=== PATIENT | male | born 1985 | race Caucasian/White ===

== ENCOUNTER 2023-10-17 12:52 | Emergency (ER) | payer OTHER ==
--- NOTE | 2023-10-17 13:06 | ED Physician Documentation ---
History of Present Illness - Stated complaint Stated Complaint: LT KNEE INJ - Chief complaint Chief Complaint: Trauma Ext - Additonal information Additional information: 38-year-old male with history of LCL tear to right knee about 3 years ago had cadaver surgery about 3 years ago has made full recovery. Yesterday he was playing soccer and said that he heard a loud pop of his left knee and is now having patellar tendon and lateral joint Space tenderness and says this feels exactly like his LCL tear about 3 years ago. 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 He is able to ambulate without weakness although he does have a limp on his left side. pain exacerbated with any manipulation of joint and with any weight bearing exercises. PD PAST MEDICAL HISTORY - Past Medical History Past Medical History: Yes Cardiovascular: Deep vein thrombosis - Past Surgical History Past Surgical History: Yes Ortho: ACL reconstruction - Present Medications Home Medications: Ambulatory Orders Medication Instructions Recorded Confirmed No Known Home Medications 10/17/23 10/17/23 - Allergies Allergies/Adverse Reactions: Allergies Allergy/AdvReac Type Severity Reaction Status Date / Time No Known Drug Allergies Allergy Verified 10/17/23 13:04 - Social History Does the pt smoke?: No Smoking Status: Never smoker Does the pt drink ETOH?: No Does the pt have substance abuse?: No - Immunizations Immunizations are current?: Yes PD ED PE NORMAL - Vitals Vital signs reviewed: Yes - General General: Alert and oriented X 3, No acute distress, Well developed/nourished - Derm Derm: Normal color, Warm and dry, No rash - Extremities Extremities: No edema PD ED PE EXPANDED - Extremities Extremities: Tenderness (to patella tendon and left lateral joint space.), Swelling, Left knee, Pedal Pulses Present, Motor intact. No: Deformity, Limited ROM, Bruising, Abrasion, Laceration, Joint effusion, Ligament laxity, Decreased/absent pulse Results - Vitals Vitals: Vital Signs - 24 hr 10/17/23 12:57 Temperature 36.9 C Heart Rate 70 Respiratory 14 Rate Blood Pressure 116/74 O2 Saturation 98 Oxygen O2 Source Room air - Rads (name of study) left knee Xray 3V Relevant Findings:: Final report received, EMP independent interpretation of test, Other (No acute bony abnormalities) PD Medical Decision Making - ED course ED course: 38-year-old male with pain differentials include but are not limited to knee dislocation, fracture, patellar tendinitis, ligament tear, patellar tendinitis. X-rays are complete for further evaluation and Did not reveal any acute bony abnormalities or findings. Patient says he has an appoint with his primary care provider soon for further evaluation as well as physical therapy referral and possible more advanced imaging as needed. I went ahead and put him in a knee immobilizer with crutches for the possibility that this could be a ligament tear. On my assessment I am not seeing any joint instability although given patient's history and the fact that he reports this feels exactly the same way as last time when he an LCL tear went ahead and placed him in a knee immobilizer and crutches to be weightbearing as tolerated. Patient given strict return precautions all questions answered and safe for discharge. Departure - Departure Disposition: 01 Home, Self Care Clinical Impression: Left knee injury Qualifiers: Encounter type: initial encounter Qualified Code(s): S89.92XA - Unspecified injury of left lower leg, initial encounter Patellar tendon strain Qualifiers: Encounter type: initial encounter Laterality: left Qualified Code(s): S86.812A - Strain of other muscle(s) and tendon(s) at lower leg level, left leg, initial encounter Instructions: ED Knee Pain UKO, ED Sprain Knee Follow-Up: [facility] [Provider Group] Comments: Thank you for trusting us with your care. We have completed x-rays of your left knee and we did not see any acute abnormalities or findings at this point in time. Your next that would be to follow-up with orthopedic surgeon or primary care provider for further evaluation of physical therapy versus more advanced im aging. Please come back to the emergency department for having any new weakness, worsening pain under control with Tylenol ibuprofen, or any other concerning symptoms. Wishing a speedy recovery. Forms: PCP List
[2023-10-17 13:07] VITALS: BP 116/74; O2SAT 98
--- NOTE | 2023-10-17 13:38 | XRAY Report ---
PROCEDURE: Knee 3V LT INDICATIONS: Left knee injury TECHNIQUE: 3 views of the knee(s) were acquired. COMPARISON: None. FINDINGS: Bones: No fractures or dislocations. No suspicious bony lesions. Soft tissues: No knee joint effusion. No suspicious soft tissue calcifications or masses. IMPRESSION: No acute bony abnormality. Reviewed by: Kavon Hermosillo MD on 10/17/2023 1:36 PM PDT Approved by: Kavon Hermosillo MD on 10/17/2023 1:36 PM PDT Station ID: [id number]
== END 2023-10-17 14:06 | disposition home or self-care (01) ==
LOC: ED 12:52
DX: S86.812A Strain of other muscle(s) and tendon(s) at lower leg level, left leg, initial encounter (principal); X58.XXXA Exposure to other specified factors, initial encounter; Y93.66 Activity, soccer
CPT/HCPCS: 99283; 99284

== ENCOUNTER 2023-12-03 07:39 | Outpatient (CLI) | payer OTHER ==
--- NOTE | 2023-12-03 11:06 | MRI Report ---
PROCEDURE: Knee LT WO INDICATIONS: L KNEE PAIN TECHNIQUE: Noncontrast sagittal PD fast spin echo and T2 fast spin echo with fat saturation, sagittal 3-D gradie nt sequence with fat saturation; coronal T1 spin echo and PD fast spin echo with fat saturation, and axial PD fast spin echo with fat saturation through the knee. COMPARISON: None. FINDINGS: Image quality: Excellent. Menisci: The medial and lateral menisci demonstrate normal morphology and internal signal. The meni scal root ligaments appear intact. Cruciate ligaments: The anterior and posterior cruciate ligaments appear intact. Medial structures: The medial collateral ligament appears intact. Visualized portions of the pes a nserinus tendons appear normal. Small amount of medial bursal fluid. Lateral structures: The lateral collateral ligament, long and short heads of the biceps femoris tend on appear intact. There is mild T2 signal elevation surrounding the lateral collateral ligament. The popliteus tendon appears normal. Iliotibial band appears normal. Anterior structures: The quadriceps and patellar tendons appear intact. Patellar alignment is magda l. No femoral trochlear dysplasia or ventral trochlear prominence. No edema in the infrapatellar fa t pad. Bones and cartilage: No displaced fracture. Mild ill-defined T2 signal elevation within the lateral tibial plateau posteriorly.. The cartilage of the medial and lateral femorotibial compartments, as w ell as the patellofemoral compartment, appears normal in thickness. Joint space: There is physiologic knee joint fluid. No Jones's cyst. Normal appearing synovial pli are incidentally noted. IMPRESSION: 1. No internal derangement. 2. Lateral collateral ligament strain. 3. Mild lateral tibial plateau contusion. 4. Medial bursitis Reviewed by: Ly Delgado MD on 12/03/2023 11:05 AM PDT Approved by: Ly Delgado MD on 12/03/2023 11:05 AM PDT Station ID: [id number]
== END 2023-12-03 07:40 | disposition home or self-care (01) ==
LOC: DI 07:39
PROVIDERS: ATTEND Preventive Medicine Aerospace Medicine
DX: S83.422A Sprain of lateral collateral ligament of left knee, initial encounter (principal)